=== PATIENT | female | born 1955 | race Two or more races ===

== ENCOUNTER → 2017-12-12 | Outpatient (CLI) | payer OTHER ==
[~2017-12-12] MED LIST: ASCO-96 PO; IBUP-1223 PO; MULT-658 PO; MULT-706 PO
== END | disposition home or self-care (01) ==
LOC: STAR 14:41
PROVIDERS: ATTEND Obstetrics & Gynecology Female Pelvic Medicine and Reconstructive Surgery
DX: Z01.818 Encounter for other preprocedural examination (principal); N39.46 Mixed incontinence; N81.10 Cystocele, unspecified; N81.6 Rectocele; R10.2 Pelvic and perineal pain
CPT/HCPCS: 93005